=== PATIENT | male | born 1950 | race Two or more races ===

== ENCOUNTER 2020-06-16 09:14 | Day surgery (SDC) | payer OTHER ==
[~2020-06-16] VITALS: Ht 175.3 cm; Wt 96.6 kg
[2020-06-16] VITALS (9 sets, daily range): BP systolic 110–143; BP diastolic 70–87
--- NOTE | 2020-06-16 07:33 | Anethesia Preoperative Eval ---
Anesthesia Pre-op PMH/ROS General Date of Evaluation: Jun 16, 2020 Time of Evaluation: 07:31 Anesthesiologist: nicho ASA Score: ASA 3 Mallampati Score Class I : Soft palate, uvula, fauces, pillars visible Class II: Soft palate, uvula, fauces visible Class III: Soft palate, base of uvula visible Class IV: Only hard plate visible Mallampati Classification: Class II Surgeon: viri Diagnosis: gerd, abdominal pain Surgical Procedure: egd/colonoscopy Anesthesia History: none Social History: alcohol use Family History: no anesthesia problems Allergies: Coded Allergies: No Known Allergies (Unverified , 06/16/20) Medications: see eMAR Patient NPO?: Yes Past Medical History Cardiovascular: Reports: HTN PSxH Narrative: vasectomy, cholecystectomy Anesthesia Pre-op Phys. Exam Physician Exam Last Vital Signs Date Time Temp Pulse Resp B/P (MAP) Pulse Ox O2 Delivery O2 Flow Rate FiO2 06/16/20 09:43 Room Air 06/16/20 09:40 96.9 59 18 143/79 99 Constitutional: NAD Neurologic: CN 2-12 intact Cardiovascular: RRR Respiratory: CTA Gastrointestinal: S/NT/ND Airway Exam Mallampati Score: Class II MO: limited Neck: flexible TMD: 2fb ROM: limited Anesthesia Pre-op A/P Labs Microbiology Date/Time Source Procedure Growth Status 06/12/20 09:25 Nasopharynx Coronavirus COVID-19 PCR ([facility]) - Final Complete Risk Assessment & Plan Assessment: asa3 Plan: mac Status Change Before Surgery: No Pre-Antibiotics Drug: Noemi Betancur MD Jun 16, 2020 07:33
--- NOTE | 2020-06-16 09:18 | Short Stay Surgery H&P ---
History of Present Illness History of Present Illness Chief Complaint Abdominal pain/IBS HPI Antoni Porter is a 70 year old male who was admitted on for Gerds, Abdominal Pain/IBS Patient History PAST MEDICAL HISTORY: (1) Hypertension (2) History of vasectomy (3) History of cholecystectomy Medication History No Active Prescriptions or Reported Meds Review of Systems Cardiovascular: Reports: hypertension Respiratory: Reports: no symptoms Skeletal: Reports: no symptoms Gastrointestinal: Reports: gastro esophageal reflux disease Genitourinary: Reports: no symptoms Neurologic: Reports: no symptoms Endocrine: Reports: no symptoms Hematologic: Reports: no symptoms Physical Exam Skin: normal HENT: normal Lungs: normal Abdomen: abnormal Extremities: normal Plan Plan of Care Upper and the lower GI endoscopy with obtaining biopsies. Preop Interventions None. Summary of Findings see the reports. Attestation Are the patient's medical conditions optimized for surgery? Attestation Response: yes Phani Dahl MD Jun 16, 2020 09:18
--- NOTE | 2020-06-16 09:19 | Pre-Procedure Note/Attestation ---
Pre-Procedure Note/Attestation Complete Prior to Procedure Planned Procedure: left Procedure Narrative: Examination of the upper and the lower GI tract via endoscopy with taking biopsy. Indications for Procedure Pre-Operative Diagnosis: R/O Gastritis/colitis/ Esophagitis/peptic ulcer Attestation I attest that I discussed the nature of the procedure; its benefits; risks and complications; and alternatives (and the risks and benefits of such alternatives), prior to the procedure, with the patient (or the patient's legal advertising account representative). I attest that, if there was a reasonable possibility of needing a blood transfusion, the patient (or the patient's legal advertising account representative) was given the [place] [facility] [employer] [facility] standardized written summary, pursuant to the Sidney Aysha Blood Safety Act ([place] Health and Safety Code # 1645, as amended). I attest that I re-evaluated the patient just prior to the surgery and that there has been no change in the patient's H&P, except as documented below: Phani Dahl MD Jun 16, 2020 09:19
--- NOTE | 2020-06-16 09:22 | Discharge Instructions ---
Discharge Instructions Discharge Instructions Follow up with: No need to follow up with doctor. The report obtained by calling office. For Congestive Heart Failure Reminder Report to your physician any weight gain of 5 pounds or more in one week. Phani Dahl MD Jun 16, 2020 09:22
[2020-06-16] MEDS ORDERED: Lidocaine 1% MPF 10mg/ml 5ml ONE (10:00)
[2020-06-16] MEDS ORDERED: LR 1000ml 1,000 ML IVLG SCH (10:30)
[2020-06-16] MEDS ORDERED: fentaNYL 100 mcg/2 mL IV PRN (10:30)
[2020-06-16] MEDS ORDERED: Atropine Inj 1mg/10ml Syr IVP PRN (10:30)
[2020-06-16] MEDS ORDERED: Midazolam 2mg/2ml Inj IVP PRN (10:30)
[2020-06-16] MEDS ORDERED: DiphenhydrAMINE 50mg/ml Inj IVP PRN (10:30)
--- NOTE | 2020-06-16 11:05 | Immediate Post-Op Evaluation ---
Immediate Post-Op Evalulation Immediate Post-Op Evalulation Procedure: egd/colonoscopy w/bx Date of Evaluation: Jun 16, 2020 Time of Evaluation: 11:33 IV Fluids: 0.9ns Blood Products: none Estimated Blood Loss: negligible Blood Pressure Systolic: 111 Blood Pressure Diastolic: 79 Pulse Rate: 69 Respiratory Rate: 18 O2 Sat by Pulse Oximetry: 94 Temperature (Fahrenheit): 97.5 Pain Score (1-10): 0 Nausea: No Vomiting: No Complications none Patient Status: awake, reacts, patent Hydration Status: adequate Drug: Noemi Betancur MD Jun 16, 2020 11:05
--- NOTE | 2020-06-16 11:19 | Endoscopy Procedure Note ---
Endoscopy Procedure Note General Indication for Procedure: Abdominal pains. Procedures Performed: EGD - Moderate gastritis biopsied. 2 mm fundic type polyp in gatric body biopsed., colonoscopy - Poor colon prep. 2 mm polypoid lesion removed from ascending colon by cold snare. 1 Cm penduculated polyp at 37 Cm from anal opening removed by hot snare. Specimen: yes Pt Tolerated Procedure Well: Yes Estimated Blood Loss: none Anesthesia Anesthesiologist: Dr. Edwards Anesthesia: moderate sedation Medications Medication Given: see anesthesia record Inserted Devices Implant(s) used?: No Quality Did scope reach the cecum?: Yes Was there any complications?: No GI Core Measures 50 yrs or older w/o bx or poly: Yes 10yrs. F/U recommended: Yes If not recommended, why?: Med reason:<3 yrs.: System Reason:<3 yrs.: Last colonoscopy >= to 3yrs: Yes Phani Dahl MD Jun 16, 2020 11:19
--- NOTE | 2020-06-16 11:49 | 48 Hour Post Anesthesia Eval ---
Post Anesthesia Evaluation Procedure: egd/colonoscopy w/bx Date of Evaluation: Jun 16, 2020 Time of Evaluation: 11:35 Blood Pressure Systolic: 110 0: 72 Pulse Rate: 61 Respiratory Rate: 18 Temperature (Fahrenheit): 97.5 O2 Sat by Pulse Oximetry: 95 Airway: patent Nausea: No Vomiting: No Pain Intensity: 0 Hydration Status: adequate Cardiopulmonary Status: stable Mental Status/LOC: patient returned to baseline Post-Anesthesia Complications: none Follow-up care needed: N/A Noemi Edwards MD Jun 16, 2020 11:49
--- NOTE | 2020-06-16 18:14 | Operative Note - Dictated ---
DATE OF OPERATION: 06/16/2020 SURGEON: Phani Dahl MD PROCEDURE: Esophagogastroduodenoscopy with biopsy. PREOPERATIVE DIAGNOSIS: Abdominal pain. POSTOPERATIVE DIAGNOSES: 1. Moderate generalized gastritis. Biopsy was taken from antrum and gastric body. 2. Presence of fundic type polypoid lesion in the greater curvature. Biopsy looked benign. MEDICATION USED: Per anesthesiologist, Dr. Figueroa. INSTRUMENT: GIF Olympus upper GI video endoscope. DESCRIPTION OF PROCEDURE: Patient after arriving in the endoscopy unit was told about risks and benefits of the procedure, which he accepted and signed informed consent. At this time, he was put in the left lateral decubitus position. After adequate IV sedation, the scope was gently passed through the cricopharyngeal area and was lodged into the upper esophagus and was gradually advanced towards gastroesophageal junction. The entire length of esophagus looked completely normal without any pathology. GE junction also looked normal without evidence of hiatal hernia or Maddox's mucosa. At this time, the scope was advanced into the stomach and gastric cavity was distended with insufflation of air. It immediately revealed that there was moderate erythema all over the gastric mucosa, most significantly on the antral area and evidence of minimal specks of blood clots of no significance. However, there was no any major ulceration or source of bleeding noted at this time. No hemangioma. No polyps or tumors noted. One biopsy from the gastric body and the other one from the antral area was also obtained. In a retroflexion maneuver, it was found that there was a small 1 to 2 mm benign-looking polypoid lesion consistent with fundic type polyp, which was grabbed and biopsied totally. This mostly looked like to be secondary to use of PPIs. At this time, the scope was advanced into the pylorus. First and second portion of duodenum were found to be completely normal. Finally, scope was pulled out totally and the patient tolerated the procedure well. Phani Dahl M.D. DR: CAIO JOB#: [id number] CC:
--- NOTE | 2020-06-16 18:29 | Operative Note - Dictated ---
DATE OF OPERATION: 06/16/2020 SURGEON: Phani Dahl MD. PROCEDURE: Total colonoscopy with polypectomy. PREOPERATIVE DIAGNOSIS: Generalized abdominal pain, history of IBS. POSTOPERATIVE DIAGNOSIS: Evidence of a 2 mm polypoid lesions located over the mid ascending colon, removed with cold snare and another 1 cm pedunculated polypoid lesion found in the rectosigmoid area at the level of 30 cm from the anal area, which was removed with hot snare totally with no complications or bleeding noted. Otherwise normal study. MEDICATION USED: Per anesthesiologist, Dr. Figueroa. INSTRUMENT: GIF Olympus video colonoscope. DESCRIPTION OF PROCEDURE: The patient after arriving in the endoscopy unit, was told about risks and benefits of the procedure, which he accepted and signed informed consent. He was then put on the left lateral decubitus position. After adequate IV sedation, the scope was gently passed through the anal area and careful examination of this section revealed no abnormalities such as major hemorrhoids or fissures, etc. After passage of the scope through the rectosigmoid area, reaching to 37 cm from the anal opening, there was seen another large 1 cm size pedunculated polypoid lesion which was consistent with fibroadenomatous polyp. It was grabbed with hot snare and totally removed and the site of the polypectomy did not reveal any bleeding, though which was coagulated adequately and before removing the polyp the site was injected with normal saline as well. Finally, scope was advanced further up into the proximal ascending and then into transverse colon and finally right colon all the way to the base of the cecum. The colon cleanup was poor and there was significant amount of liquidy stool along the colon and as such minimal diminutive polypoid lesions could not be ruled out. At this point after reaching to the mid ascending colon, there was found to be another 2 mm pedunculated polypoid lesion which looked quite benign and it was grabbed with cold snare and totally removed and the specimen was sent to the pathology lab. At this time, within 6 minutes, the scope was gradually pulled out and re-evaluation of the colon did not reveal any other abnormalities. The patient tolerated the procedure well and left the endoscopy room in a good condition. Meseret AtkinsD. DR: VITO JOB#: [id number] CC:
== END 2020-06-16 12:30 | disposition home or self-care (01) ==
LOC: GAS 09:14
DX: R10.84 Generalized abdominal pain (principal); K63.5 Polyp of colon; I10 Essential (primary) hypertension; K21.9 Gastro-esophageal reflux disease without esophagitis; Z90.49 Acquired absence of other specified parts of digestive tract; K29.50 Unspecified chronic gastritis without bleeding; D12.2 Benign neoplasm of ascending colon
CPT/HCPCS: 45381; 94003; 94150; J7030